=== PATIENT | male | born 1975 | race Two or more races ===

== ENCOUNTER 2018-04-30 18:06 | Emergency (ER) | payer MEDICAID ==
[~2018-04-30] VITALS: Ht 162.6 cm; Wt 79.4 kg
[2018-04-30 18:15] VITALS: BP 141/92
[2018-04-30] MEDS ORDERED: DIPH,PERTUSS(ACELL),TET VAC/PF 0.5 ML IM-VACC ONE ×2 (18:30→19:01)
== END 2018-04-30 19:33 | disposition home or self-care (01) ==
LOC: ED 19:13
DX: S61.051A Open bite of right thumb without damage to nail, initial encounter (principal); W54.0XXA Bitten by dog, initial encounter; Y93.89 Activity, other specified; Y99.8 Other external cause status; Y92.410 Unspecified street and highway as the place of occurrence of the external cause
CPT/HCPCS: 90471; 90715; 99284

== ENCOUNTER 2019-01-25 07:46 | Emergency (ER) | payer MEDICAID ==
[~2019-01-25] VITALS: Ht 162.6 cm; Wt 78.4 kg
[2019-01-25 07:49] VITALS: BP 122/86
--- NOTE | 2019-01-25 08:21 | NUR ---
Patient/Caregiver given discharge instructions and they have confirmed that they understand the instructions. Patient ambulatory with steady gait.
== END 2019-01-25 08:33 | disposition home or self-care (01) ==
LOC: ED 08:26
DX: L20.84 Intrinsic (allergic) eczema (principal)
CPT/HCPCS: 99283

== ENCOUNTER 2020-02-16 11:31 | Emergency (ER) | payer MEDICAID ==
[~2020-02-16] VITALS: Ht 170.2 cm; Wt 68.0 kg
[2020-02-16 11:41] VITALS: BP 146/78
--- NOTE | 2020-02-16 11:45 | NUR ---
PT AMBULATED TO ROOM WITH A STEADY GAIT. PT AXOX4 AND DENIES ANY MEDICAL COMPLAINTS AT THIS TIME.
--- NOTE | 2020-02-16 11:55 | NUR ---
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 I'M LEAVING!" PT AMBULATORY WITH STEADY GAIT. PT REFUSING TO STAY WHEN ASKED.
--- NOTE | 2020-02-16 11:55 | NUR ---
PT SEEN LEAVING ER AND WALKING WITH A STEADY GAIT. MD MADE AWARE OF PT ELOPMENT.
== END 2020-02-16 11:57 | disposition left against medical advice (07) ==
LOC: ED 11:51
DX: F10.120 Alcohol abuse with intoxication, uncomplicated (principal); Y90.9 Presence of alcohol in blood, level not specified
CPT/HCPCS: 99283

== ENCOUNTER 2020-04-18 22:11 | Emergency (ER) | payer MEDICAID ==
[~2020-04-18] VITALS: Ht 162.6 cm; Wt 70.0 kg
--- NOTE | 2020-04-18 22:29 | NUR ---
ASSUMED CARE OF PATIENT. PATIENT BIB [facility] FOR ETOH. VS STABLE. NO ACUTE DISTRESS NOTED. PT IS NOT ABLE TO AMBULATE AT THIS TIME. PT GIVEN A BLANKET. CALL LIGHT IN PLACE. PT HAS BEEN SEEN BY DR JACKSON. WILL CONTINUE TO MONITOR.
--- NOTE | 2020-04-18 22:51 | NUR ---
PT RESTING IN ROOM. NO ACUTE DISTRESS NOTED. VS STABLE. WILL CONTINUE TO MONITOR.
[2020-04-19 00:14] VITALS: BP 108/68
--- NOTE | 2020-04-19 00:15 | NUR ---
PT RESTING IN ROOM. VS STABLE. NO ACUTE DISTRESS NOTED. PT IS NOT ABLE TO AMBULATE AT THIS TIME. WILL CONTINUE TO MONITOR.
--- NOTE | 2020-04-19 01:00 | NUR ---
REPORT GIVEN TO RUSSELL PALACIOS
--- NOTE | 2020-04-19 01:08 | NUR ---
REPORT RECIEVED FROM RUSSELL DANG. PT MOVED TO ED 14.
== END 2020-04-19 01:19 | disposition home or self-care (01) ==
LOC: ED 04-19 01:00
DX: F10.229 Alcohol dependence with intoxication, unspecified (principal); Y90.9 Presence of alcohol in blood, level not specified
CPT/HCPCS: 99283

== ENCOUNTER 2020-05-24 18:31 | Emergency (ER) | payer MEDICAID ==
[~2020-05-24] VITALS: Ht 162.6 cm; Wt 75.2 kg
--- NOTE | 2020-05-24 18:51 | NUR ---
PT STATES HE CAME INTO THE ED TONIGHT TO "GET SOBER" BECUASE HE "WANTS TO QUIT DRINKING". PT STATES HIS LAST DRINK WAS [place] ABOUT 50 MINUTES AGO. PT REPORTS BEING HOMELESS. STATES HE DRINKS ABOUT 20 BEERS A DAY AT LEAST. PT ANOx4, MAEx4, NAD, CALL LIGHT ON LAP, VERBALIZED HE WONT GET OUT OF BED WITHOUT HELP. PT GIVEN WARM BLANKETS FOR COMFORT. PLACED ON SPO2/BP MONITORING, CHANGED INTO GOWN. BEDSIDE REPORT TO GUILHERME WELLS. Addendum: 05/24/20 at 1853 by ARLYN LUDIVINA WELLS
--- NOTE | 2020-05-24 19:08 | NUR ---
ASSUMED CARE OF PATIENT
--- NOTE | 2020-05-24 19:46 | NUR ---
PT RESTING IN ROOM. NO ACUTE DISTRESS NOTED. VS STABLE. CALL LIGHT IN PLACE WILL CONTINUE TO MONITOR.
[2020-05-24 19:48] LABS: ALBUMIN 3.2 g/dL (3.4-5.0); ANION GAP 9 mmol/L (5-15); CHLORIDE 112 mmol/L (98-107); CREATININE 0.66 mg/dL (0.7-1.3)
[2020-05-24 19:52] LABS: ALANINE AMINOTRANSFERASE 130 U/L (12-78); ALKALINE PHOSPHATASE 71 U/L (45-117); BILIRUBIN,TOTAL 0.2 mg/dL (0.2-1.0); TOTAL PROTEIN 6.9 g/dL (6.4-8.2)
[2020-05-24 20:24] LABS: BASOPHILS # (AUTO) 0.03 x10^3/uL (0-0.1); BASOPHILS % (AUTO) 0 % (0-1); EOSINOPHILS # (AUTO) 0.11 x10^3/uL (0-0.4); EOSINOPHILS % (AUTO) 2 % (1-7); LYMPHOCYTES # (AUTO) 2.79 x10^3/uL (1-3.4); LYMPHOCYTES % (AUTO) 47 % (22-44); MD NO; MEAN CORPUSCULAR HEMOGLOBIN 34.6 pg (27.5-34.5); MEAN CORPUSCULAR HGB CONC 33.5 g/dL (33.2-36.2); MEAN CORPUSCULAR VOLUME 103.3 fL (81-97); MEAN PLATELET VOLUME 7.8 fL (7.4-10.4); MONOCYTES # (AUTO) 0.59 x10^3/uL (0.2-0.8); MONOCYTES % (AUTO) 10 % (2-9); NEUTROPHILS # (AUTO) 2.39 x10^3/uL (1.8-6.8); NEUTROPHILS % (AUTO) 41 % (42-75); PLATELET COUNT 270 x10^3/uL (130-400); RED BLOOD COUNT 3.87 x10^6/uL (4.38-5.82); RED CELL DISTRIBUTION WIDTH 13.5 % (9.4-14.8)
--- NOTE | 2020-05-24 21:17 | NUR ---
UA SENT. PT RESTING IN ROOM. PT IS NOT ABLE TO AMBULATE AT THIS TIME. VS STABLE. CALL LIGHT IN PLACE WILL CONTINUE TO MONITOR.
[2020-05-24 21:34] LABS: MICROSCOPIC NOT IND
--- NOTE | 2020-05-24 22:30 | NUR ---
PT IS A&O X4, PT IS ABLE TO GET SELF DRESSED, AMBULATE SAFELY. PT AMBULATED TO BATHROOM AND BACK. STEADY GAIT. VS STABLE. PT DISCHARGED TO THE GROUP HOME BY TAXI.
[2020-05-24 22:31] VITALS: BP 117/86
== END 2020-05-24 22:32 | disposition home or self-care (01) ==
LOC: ED 19:16
DX: F10.120 Alcohol abuse with intoxication, uncomplicated (principal); R10.9 Unspecified abdominal pain; R11.2 Nausea with vomiting, unspecified; Y90.9 Presence of alcohol in blood, level not specified
CPT/HCPCS: 36415; 80053; 81003; 83690; 85025; 99285

== ENCOUNTER 2020-08-13 19:58 | Emergency (ER) | payer MEDICAID ==
[~2020-08-13] VITALS: Ht 162.6 cm; Wt 68.0 kg
--- NOTE | 2020-08-13 20:07 | NUR ---
PT BIB EMS FOR ETOH AND SYNCOPE. "HE WAS DRINKING ALL DAY WITH HIS FRIENDS AND HE PASSED OUT AN THEY CALLED 911" PER EMS. PT AOX4. RESTING IN [facility]. CONNECTED TO MONITORING EQUIPMENT.
--- NOTE | 2020-08-13 20:12 | NUR ---
Resident at bedside.
--- NOTE | 2020-08-13 20:17 | NUR ---
Pt walks around unit, steady gait. Voided clear yellow urine, urinal. Collected sample.
--- NOTE | 2020-08-13 21:11 | NUR ---
PT WITH STEADY GAIT, NO SLURRED SPEACH, PLAYING GAMES WITH THE CALL JOINER LAUGHING. INFORMED PT SECURITY WILL BE CALLED NEXT DOES THIS. PT HAS STABLE VS AND STEADY GAIT.
[2020-08-13 21:13] LABS: ALANINE AMINOTRANSFERASE 116 U/L (12-78); ALBUMIN 3.1 g/dL (3.4-5.0); ANION GAP 9 mmol/L (5-15); CHLORIDE 108 mmol/L (98-107); CREATININE 0.84 mg/dL (0.7-1.3)
[2020-08-13 21:14] LABS: MEAN CORPUSCULAR HEMOGLOBIN 34.6 pg (27.5-34.5); MEAN CORPUSCULAR HGB CONC 34.5 g/dL (33.2-36.2); MEAN PLATELET VOLUME 8.1 fL (7.4-10.4); PLATELET COUNT 226 x10^3/uL (130-400); RED BLOOD COUNT 3.86 x10^6/uL (4.38-5.82)
[2020-08-13 21:16] LABS: ALKALINE PHOSPHATASE 119 U/L (45-117); BILIRUBIN,TOTAL 0.5 mg/dL (0.2-1.0); TOTAL PROTEIN 7.7 g/dL (6.4-8.2)
--- NOTE | 2020-08-13 21:23 | NUR ---
Pt now asleep, RR equal and unlabored. DC papers up for when able to navigate community safely.
[2020-08-13 21:48] LABS: MD YES
[2020-08-13 21:51] LABS: BASOS#(MANUAL) 0.06 x10^3/uL (0-0.1); BASOS% (MANUAL) 1 % (0-1); LYMPHS% (MANUAL) 49 % (22-44); MONOS#(MANUAL) 0.33 x10^3/uL (0.3-2.7); MONOS% (MANUAL) 6 % (2-9); SEG#(MANUAL) 2.42 x10^3/uL (1.8-6.8); SEGS% (MANUAL) 44 % (42-75)
[2020-08-13 21:52] LABS: <PLATELET ESTIMATE> ADEQUATE; <PLT MORPHOLOGY> NORMAL PLT MORPH; <RBC MORPHOLOGY> NORMAL
--- NOTE | 2020-08-13 22:24 | NUR ---
Sleeping, RR equal and unlaboared.
--- NOTE | 2020-08-13 22:27 | NUR ---
Pt steady gait, able to navigate community safely. DC with assist of security. VSS/ no IV. dc papers.
[2020-08-13 22:31] VITALS: BP 125/74
--- NOTE | 2020-08-13 22:31 | NUR ---
Cab voucher, security assist.
== END 2020-08-13 22:32 ==
LOC: ED 21:15
DX: F10.220 Alcohol dependence with intoxication, uncomplicated (principal); R06.02 Shortness of breath; R30.0 Dysuria; Y90.0 Blood alcohol level of less than 20 mg/100 ml; F17.200 Nicotine dependence, unspecified, uncomplicated
CPT/HCPCS: 36415; 80053; 83690; 85025; 99283

== ENCOUNTER 2020-11-26 11:03 | Emergency (ER) | payer MEDICAID ==
[~2020-11-26] VITALS: Ht 165.1 cm; Wt 70.0 kg
--- NOTE | 2020-11-26 11:16 | NUR ---
PT BIB [facility] FOR BLOOD IN HIS STOOL & EMESIS. PT STATES HE HAS HAD "10 HURRICANES" THIS MORNING, USUALLY DRINKS 20 HURRICANES A DAY. [facility] AMBULATED PT TO BR WITH UPRIGHT/STEADY GAIT. PT CHANGED INTO GOWN, MONITORS IN PLACE. PA AT BS. COMFORT MEASURES PROVIDED. NAD NOTED.
[2020-11-26 11:37] LABS: MICROSCOPIC NOT IND
[2020-11-26 11:52] LABS: BASOPHILS % (AUTO) 0 % (0-1); EOSINOPHILS % (AUTO) 1 % (1-7); LYMPHOCYTES % (AUTO) 45 % (22-44); MEAN CORPUSCULAR HEMOGLOBIN 33.9 pg (27.5-34.5); MEAN CORPUSCULAR HGB CONC 34.4 g/dL (33.2-36.2); MEAN PLATELET VOLUME 7.9 fL (7.4-10.4); MONOCYTES % (AUTO) 6 % (2-9); NEUTROPHILS % (AUTO) 48 % (42-75); PLATELET COUNT 294 x10^3/uL (130-400); RED BLOOD COUNT 4.54 x10^6/uL (4.38-5.82)
[2020-11-26 11:58] LABS: ALANINE AMINOTRANSFERASE 52 U/L (12-78); ALBUMIN 3.9 g/dL (3.4-5.0); ANION GAP 12 mmol/L (5-15); CALCIUM 8.5 mg/dL (8.5-10.1); CHLORIDE 109 mmol/L (98-107)
[2020-11-26 12:01] LABS: ALKALINE PHOSPHATASE 68 U/L (45-117); BILIRUBIN,TOTAL 0.3 mg/dL (0.2-1.0); CREATININE 0.69 mg/dL (0.7-1.3); TOTAL PROTEIN 8.5 g/dL (6.4-8.2)
[2020-11-26 12:04] LABS: MD NO
[2020-11-26 12:19] VITALS: BP 111/70
--- NOTE | 2020-11-26 12:34 | NUR ---
Patient given discharge instructions and they have confirmed that they understand the instructions. Patient ambulatory with steady gait.
== END 2020-11-26 12:36 | disposition home or self-care (01) ==
LOC: ED 12:22
DX: K29.20 Alcoholic gastritis without bleeding (principal); F10.120 Alcohol abuse with intoxication, uncomplicated; R11.2 Nausea with vomiting, unspecified; R10.10 Upper abdominal pain, unspecified; Y90.0 Blood alcohol level of less than 20 mg/100 ml
CPT/HCPCS: 36415; 80053; 81003; 83690; 85025; 99283

== ENCOUNTER 2021-04-13 19:23 | Emergency (ER) | payer MEDICAID ==
[~2021-04-13] VITALS: Ht 162.6 cm; Wt 72.7 kg
[2021-04-13 19:25] VITALS: BP 125/84
--- NOTE | 2021-04-13 19:29 | NUR ---
Pt BIB EMS with c/o "I wanted to come here to waste your time". Pt ambulatory with steady gait to room, A&O x4, ETOH on board, no chief complaint. Connected to BP and O2 monitors. All VSS. WCTM
== END 2021-04-13 20:26 | disposition home or self-care (01) ==
LOC: ED 19:30
DX: F10.120 Alcohol abuse with intoxication, uncomplicated (principal); Z72.9 Problem related to lifestyle, unspecified; Z86.19 Personal history of other infectious and parasitic diseases; Y90.0 Blood alcohol level of less than 20 mg/100 ml
CPT/HCPCS: 99283